=== PATIENT | female | born 1940 | race Caucasian/White ===

== ENCOUNTER 2017-12-03 14:30 | Outpatient (CLI) | payer MEDICARE, OTHER | END 2017-12-03 14:31 | disposition home or self-care (01) | LOC: BICMAMMO 14:30 | PROVIDERS: ATTEND Family Medicine | DX: Z12.31 Encounter for screening mammogram for malignant neoplasm of breast (principal) | CPT/HCPCS: 77063; 77067 ==

== ENCOUNTER 2017-12-31 18:44 | Inpatient (IN) | payer MEDICARE, OTHER ==
[~2017-12-31 18:44] MED LIST: ISOVUE-370 76%-LOCM 1 ML ONE
[2017-12-31] MEDS ORDERED: Morphine 4 MG/ML VIAL ONE (18:49)
[2017-12-31] MEDS ORDERED: Adacel (T-DAP) 0.5 ML VIAL ONE (18:56)
[2017-12-31 19:19] LABS: #Basophils 0.1 thou/uL (0.0-0.2); #Eosinphils 0.3 thou/uL (0.0-0.7); #Lymphocytes 4.1 thou/uL (1.20-3.40); #Monocytes 0.7 thou/uL (0.11-0.59); #Neutrophils 14.5 thou/uL (1.40-6.50); %Basophils 0.6 % (0.0-1.0); %Eosinophils 1.4 % (0.0-10.0); %Monocytes 3.3 % (0.0-10.0); %Neutrophils 73.7 % (42.0-75.0); Hemoglobin 13.8 g/dL (12.0-16.0); Mean Corpuscular HGB CONC 36.5 g/dL (32.0-36.0); Mean Corpuscular Hemoglobin 29.8 pg (27.0-31.0); Mean Corpuscular Volume 81.5 fL (78.0-98.0); Mean Platelet Volume 6.7 fL (7.4-10.4); Platelet Count 260 thou/uL (130-400); RBC Distribution Width 12.2 % (11.5-14.5); Red Blood Cell (RBC) Count 4.62 mill/uL (4.20-5.40); White Blood Cell (WBC) Count 19.7 thou/uL (4.8-10.8)
[2017-12-31 19:23] LABS: INR-International Normal Ratio 0.9; Prothrombin Time 12.1 SEC (12.0-14.7)
[2017-12-31 19:25] LABS: PTT 20.3 SEC (22.9-36.1)
[2017-12-31 19:32] LABS: ALT (SGPT) 129 U/L (8-55); AST (SGOT) 215 U/L (5-34); Albumin 4.1 g/dL (3.4-4.8); Alkaline Phosphatase 194 U/L (40-150); Anion Gap 15 mmol/L (10-20); BUN (Urea Nitrogen) 20 mg/dL (9.8-20.1); Bilirubin, Total 0.6 mg/dL (0.2-1.2); Calc. Creatinine Clearance 0 mL/min (70-130); Calcium 8.7 mg/dL (7.8-10.44); Carbon Dioxide 21 mmol/L (23-31); Chloride 105 mmol/L (98-107); Estimated GFR-MDRD 51; Globulin 2.9 g/dL (2.4-3.5); Glucose 189 mg/dL (83-110); Sodium 138 mmol/L (136-145)
[2017-12-31] MEDS ORDERED: Fentanyl 100 MCG/2 ML VIAL ONE (19:42)
[2017-12-31] MEDS ORDERED: Lidocaine 1% w/Epinephrine 1:100K 20 ML VIAL ONE (19:45)
[2017-12-31 20:31] LABS: Bilirubin Negative (Negative); Blood, Urine Large (Negative); Clarity CLOUDY (Clear); Glucose, Urine (Dipstick) Negative (Negative); Leukocyte Negative (Negative); Nitrite Negative (Negative); Protein, Urine (Dipstick) 100 mg/dL (Neg-Trace); Urobilinogen 0.2 mg/dL (0.2-1.0)
[2017-12-31 20:32] LABS: Bacteria/HPF None Seen HPF (None Seen); WBC/HPF 21-50 HPF (0-3)
[2017-12-31 20:36] LABS: Pathc Cast-AUWi Flag 4.94 (0-2.49); Yeast-AUWi Flag 41.1 (0-25.0)
[2017-12-31 20:38] LABS: Specific Gravity, Urine 1.057 (1.002-1.036)
[2017-12-31 20:48] LABS: Crystals/HPF None Seen HPF (Negative); Hyaline Casts/LPF 0-3 HYALINE CAST LPF (0-3 Hyaline); RBC/HPF 21-50 HPF (0-3); Yeast-All Forms None Seen HPF (None Seen)
[2017-12-31] MEDS ORDERED: Acetaminophen 1,000 MG in Premix Bag 1 BAG IVPB SCH (21:15)
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
[2017-12-31] MEDS ORDERED: Potassium Chloride 40 MEQ in Sodium Chloride 0.9% 500 ML IVPB SCH (21:30)
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
--- NOTE | 2017-12-31 21:50 | RAD ---
LEFT FOREARM TWO VIEWS: HISTORY: Injury. Trauma. COMPARISON: None. FINDINGS: The forearm is intact. Evidence of chronic medial epicondylitis. The soft tissues are unremarkable. IMPRESSION: Intact forearm. POS: [facility]
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
--- NOTE | 2017-12-31 22:02 | RAD ---
LEFT ELBOW TWO VIEWS: HISTORY: Pain. Trauma. COMPARISON: None. FINDINGS: Baseline images provided. No joint effusion. No fracture. No malalignment. IMPRESSION: No post traumatic change. POS: [facility]
--- NOTE | 2017-12-31 22:07 | RAD ---
ONE VIEW PELVIS: HISTORY: Trauma. Pain. COMPARISON: None. FINDINGS: The sacral ala are intact. The sacroiliac joints are patent and symmetric. The bony pelvis is intac t. Based on this single image, the contour of both femoral heads is maintained. No definite hip fra cture. IMPRESSION: No post traumatic change. POS: [facility]
--- NOTE | 2017-12-31 22:08 | RAD ---
CHEST ONE VIEW: HISTORY: Trauma. Pain. COMPARISON: None. FINDINGS: Right-sided subcutaneous emphysema is noted. Multiple right rib fractures are identified. Right-eduardo ed pneumothorax is noted. Normal cardiac silhouette. Pneumothorax in the left lung apex noted on CT is difficult to appreciate radiographically. IMPRESSION: Post traumatic changes, as above. POS: [facility]
[2017-12-31] MEDS ORDERED: Ondansetron HCl/PF 4 MG/2 ML Vial IVP PRN (22:18)
[2017-12-31] MEDS ORDERED: Ondansetron ODT 4 MG TAB PO PRN (22:18)
[2017-12-31] MEDS ORDERED: Rib Fracture Protocol IV SCH (22:18)
[2017-12-31] MEDS ORDERED: Dextrose 50% Abboject 50 ML SYRINGE SLOW IVP PRN (22:18)
[2017-12-31] MEDS ORDERED: Dextrose 5% in Water 1,000 ML IV PRN (22:18)
--- NOTE | 2017-12-31 22:18 | RAD ---
TWO VIEWS LEFT WRIST: HISTORY: Trauma. Pain. COMPARISON: None. FINDINGS: There is extensive dorsal soft tissue swelling. There appears to be chronic degenerative change invo lving the first carpometacarpal articulation with destructive change involving the trapezium and poss ibly the trapezoid bones. Acute fractures are not appreciated. There is soft tissue swelling at the level of the first metacarpal. IMPRESSION: Presumed chronic changes involving the first carpometacarpal articulation with bony remodeling. Ther e is soft tissue swelling involving the first metacarpal, as well as the dorsal aspect of the distal radius and ulna. Findings are presumed to be post traumatic. If there is concern for infection, add itional imaging can be performed. Of note, is there is concern for possible fractures involving the distal carpal row, CT is recommended for better evaluation and interrogation. A radiographic occult fracture could easily be missed in the setting of presumed chronic changes. POS: [facility]
[2017-12-31] MEDS: Sodium Chloride 0.9% 1,000 ML IV SCH (22:24)
[2017-12-31] MEDS ORDERED: Famotidine 20 MG TAB PO SCH (22:45)
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
[2017-12-31 22:51] VITALS: BMI 29.4
[2017-12-31] MEDS ORDERED: traMADol HCl 50 MG TAB PO PRN ×2 (23:01)
[2017-12-31] MEDS ORDERED: Morphine 4 MG/ML VIAL SLOW IVP PRN (23:09)
--- NOTE | 2017-12-31 23:29 | RAD ---
CHEST ONE VIEW: HISTORY: Trauma. Chest tube placement. COMPARISON: Radiograph from the same day. FINDINGS: Interval placement of thoracostomy tube with SidePort inside the hemithorax. The tip is at the level of the mid lung. No significant apical pneumothorax is appreciated. IMPRESSION: 1. Interval placement of thoracostomy tube with the tip projecting over the midline without signific ant apical pneumothorax remaining. 2. Increased subcutaneous emphysema. 3. Multiple displaced right-sided rib fractures. POS: [facility]
[2017-12-31] MEDS: Acetaminophen 650 MG Suppository PR SCH (23:57)
[2017-12-31] MEDS ORDERED: Ketorolac Tromethamine 30 MG/ML VIAL IVP SCH (23:59)
[2018-01-01 04:52] LABS: #Eosinphils 0.1 thou/uL (0.0-0.7); #Lymphocytes 0.7 thou/uL (1.20-3.40); #Monocytes 0.6 thou/uL (0.11-0.59); #Neutrophils 11.2 thou/uL (1.40-6.50); %Eosinophils 0.6 % (0.0-10.0); %Lymphocytes 5.8 % (21.0-51.0); %Monocytes 4.9 % (0.0-10.0); %Neutrophils 88.6 % (42.0-75.0); Hemoglobin 12.9 g/dL (12.0-16.0); Mean Corpuscular HGB CONC 35.9 g/dL (32.0-36.0); Mean Corpuscular Hemoglobin 30.1 pg (27.0-31.0); Mean Corpuscular Volume 83.9 fL (78.0-98.0); Mean Platelet Volume 6.9 fL (7.4-10.4); Platelet Count 203 thou/uL (130-400); RBC Distribution Width 12.5 % (11.5-14.5); Red Blood Cell (RBC) Count 4.27 mill/uL (4.20-5.40); White Blood Cell (WBC) Count 12.6 thou/uL (4.8-10.8)
[2018-01-01 05:15] LABS: ALT (SGPT) 128 U/L (8-55); AST (SGOT) 177 U/L (5-34); Alkaline Phosphatase 156 U/L (40-150); Bilirubin, Direct 0.2 mg/dL (0.1-0.3); Bilirubin, Total 0.6 mg/dL (0.2-1.2); Protein, Total 6.7 g/dL (6.0-8.3)
[2018-01-01 05:31] LABS: Anion Gap 18 mmol/L (10-20); BUN (Urea Nitrogen) 17 mg/dL (9.8-20.1); Calc. Creatinine Clearance 75 mL/min (70-130); Calcium 8.5 mg/dL (7.8-10.44); Carbon Dioxide 19 mmol/L (23-31); Chloride 107 mmol/L (98-107); Estimated GFR-MDRD 59; Glucose 271 mg/dL (83-110); Magnesium 1.8 mg/dL (1.6-2.6); Phosphorus 3.4 mg/dL (2.3-4.7); Potassium 3.8 mmol/L (3.5-5.1); Sodium 140 mmol/L (136-145)
[2018-01-01] MEDS: Acetaminophen 650 MG Suppository PR SCH (05:57)
[2018-01-01] MEDS ORDERED: Famotidine 20 MG TAB PO SCH (09:00)
[2018-01-01] MEDS ORDERED: Prevnar 13-Val Conj/PF 0.5 ML SYRINGE IM ONE (09:00)
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
--- NOTE | 2018-01-01 09:29 | CT ---
PRELIMINARY REPORT/[facility]/EMERGENTY AFTER-HOURS PROCEDURE CT Head Without Intravenous Contrast EXAM DATE/TIME: 01/01/2018 4:30 AM CLINICAL HISTORY: 77 years old, female; Condition or disease; Other: Ich; Patient HX: Follow up ich TECHNIQUE: Axial computed tomography images of the head/brain without intravenous contrast. COMPARISON: No relevant prior studies available. FINDINGS: Brain: Small amount of traumatic subarachnoid blood in the parafalcine location on the left. Tiny sub centimeter contusion not excluded. -hypodensity is seen in the periventricular cerebral white matter. This change is nonspecific but is most likely secondary to chronic ischemia within microvascular dis tributions. The lacy white matter distinction is maintained throughout the brain. Traumatic subarachn oid blood about the right sylvian fissure and the sulci about the right frontoparietal region. Trauma tic subarachnoid blood adjacent to the left temporal lobe. Possible small cerebral contusions in this region of approximately 1 cm. Followup. Ventricles: The ventricles are enlarged on the basis of mild diffuse cerebral volume loss. Bones/joints: Unremarkable. No acute fracture. Soft tissues: Soft tissue scalp contusion in the right frontal parietal region Sinuses: Unremarkable as visualized. No acute sinusitis. Mastoid air cells: Unremarkable as visualized. No mastoid effusion. IMPRESSION: Traumatic subarachnoid blood about the right sylvian fissure and the sulci about the right frontopari etal region. Traumatic subarachnoid blood adjacent to the left temporal lobe. Possible small cerebral contusions in this region of approximately 1 cm. Followup. Small amount of traumatic subarachnoid blood in the parafalcine location on the left. Tiny subcentime ter contusion not excluded. No prior exams are available for comparison. Thank you for allowing us to participate in the care of your patient. Dictated and Authenticated by: Shailesh Vincent MD 01/01/2018 6:16 AM Central Time ([place] & [place]) CT HEAD NONCONTRAST: Date: 01-01-18 Performed on emergency basis at 0431 hours. History: Intracranial hemorrhage. Follow up. Comparison: 12-31-17 FINDINGS: Agree with the preliminary report by Dr. Howell from [facility]. Prior exams are now available for direct comparison. The subarachnoid hemorrhage along the right Sylv paul fissure and the posterior aspect of the left temporal sulci has increased slightly. Other scatter ed areas of subarachnoid hemorrhage are not significantly changed. Non diffuse cerebral edema is not significantly different than on a prior study. No focal areas of acute mass effect are evident. Code QA POS: [facility]
[2018-01-01] MEDS ORDERED: Dextrose 5% in Water 1,000 ML IV PRN (09:33)
[2018-01-01] MEDS ORDERED: Dextrose 50% Abboject 50 ML SYRINGE IVP PRN (09:33)
--- NOTE | 2018-01-01 10:14 | RAD ---
PORTABLE AP CHEST X-RAY: 01/01/2018 HISTORY: Evaluate thoracostomy tube placement. Follow-up evaluation. COMPARISON: 12/31/2017 FINDINGS: Right-sided thoracostomy tube remains in place and unchanged in position. There is suggestion of a v joseph tiny right apical pneumothorax. Multiple displaced right sided rib fractures are present. Subcu taneous emphysema is seen at the lateral right chest. There is volume loss present at the left lung base, and a tiny left pleural effusion is not entirely excluded. No pneumothorax is seen on the left . The cardiac silhouette and pulmonary vasculature are within normal limits. No other interval holguin ge. IMPRESSION: 1. Multiple displaced right-sided rib fractures with right-sided thoracostomy tube in place. There is question of a tiny right apical pneumothorax. 2. Subcutaneous emphysema along the right lateral chest. 3. Atelectasis, left lung base. POS: [facility]
[2018-01-01] MEDS ORDERED: Gabapentin 100 MG CAP PO SCH (10:15)
[2018-01-01] MEDS: traMADol HCl 50 MG TAB PO SCH ×3 (11:04→23:59)
[2018-01-01] MEDS: Insulin Regular 300 UNITS/3 ML VIAL SC PRN ×3 (12:29→21:29)
[2018-01-01] MEDS: Sodium Chloride 0.9% 1,000 ML IV SCH (13:39)
[2018-01-01] MEDS: Gabapentin 100 MG CAP PO SCH ×2 (14:26→20:27)
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
[2018-01-01] MEDS: Famotidine 20 MG TAB PO SCH (20:26)
[2018-01-01] MEDS: Donepezil HCl 5 MG TAB PO SCH (20:27)
[2018-01-02] MEDS: Sodium Chloride 0.9% 1,000 ML IV SCH ×2 (04:08→22:02)
[2018-01-02] MEDS: traMADol HCl 50 MG TAB PO SCH ×3 (05:57→19:36)
[2018-01-02] MEDS: Insulin Regular 300 UNITS/3 ML VIAL SC PRN ×3 (06:18→19:41)
--- NOTE | 2018-01-02 09:28 | RAD ---
PORTABLE CHEST: HISTORY: Respiratory distress. COMPARISON: Prior day's study. Heart size is within normal limits. There are atherosclerotic changes of the aorta. Right chest tub e remains in position. Displaced right-sided rib fractures again noted. There is an apical pneumoth orax present. This appears possibly slightly larger as compared to the prior examination. Subcutane ous emphysema is again noted. IMPRESSION: Suggestion of some perhaps minimal interval increase in size of the right-sided pneumothorax. Multip le displaced right rib fractures again noted. Right chest tube remains in place. POS: [facility]
[2018-01-02] MEDS: Famotidine 20 MG TAB PO SCH ×2 (10:02→20:13)
[2018-01-02] MEDS: Gabapentin 100 MG CAP PO SCH ×3 (10:03→20:13)
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
[2018-01-02] MEDS ORDERED: HYDROcodone/Acetaminophen 5/325 mg Tablet PO PRN (16:38)
[2018-01-02] MEDS: Cyclobenzaprine 10 MG TAB PO PRN (17:13)
--- NOTE | 2018-01-02 20:10 | RAD ---
ABDOMEN ONE VIEW: 01/02/18 HISTORY: Evaluate for ileus. COMPARISON: None. FINDINGS: There are mildly prominent air filled loops of small bowel and colon. There is air down to the level of the rectum. Possibility of ileus is raised. Continued surveillance is recommended. IMPRESSION: Findings as above. POS: [facility]
[2018-01-02] MEDS: Donepezil HCl 5 MG TAB PO SCH ×2 (20:13→22:02)
[2018-01-03] MEDS: Cyclobenzaprine 10 MG TAB PO PRN (01:14)
[2018-01-03] MEDS: traMADol HCl 50 MG TAB PO SCH ×5 (01:14→22:42)
[2018-01-03] MEDS: hydrALAZINE 20 MG/ML VIAL SLOW IVP PRN (05:12)
[2018-01-03 05:38] LABS: #Eosinphils 0.1 thou/uL (0.0-0.7); #Lymphocytes 0.9 thou/uL (1.20-3.40); #Monocytes 0.3 thou/uL (0.11-0.59); %Basophils 0.5 % (0.0-1.0); %Eosinophils 0.7 % (0.0-10.0); %Lymphocytes 8.7 % (21.0-51.0); %Monocytes 3.2 % (0.0-10.0); Hemoglobin 10.3 g/dL (12.0-16.0); Mean Corpuscular HGB CONC 34.4 g/dL (32.0-36.0); Mean Corpuscular Hemoglobin 29.2 pg (27.0-31.0); Mean Corpuscular Volume 84.7 fL (78.0-98.0); Mean Platelet Volume 6.8 fL (7.4-10.4); Platelet Count 171 thou/uL (130-400); RBC Distribution Width 12.7 % (11.5-14.5); Red Blood Cell (RBC) Count 3.55 mill/uL (4.20-5.40); White Blood Cell (WBC) Count 10.3 thou/uL (4.8-10.8)
[2018-01-03 06:06] LABS: Anion Gap 14 mmol/L (10-20); BUN (Urea Nitrogen) 10 mg/dL (9.8-20.1); Calc. Creatinine Clearance 104 mL/min (70-130); Calcium 8.5 mg/dL (7.8-10.44); Carbon Dioxide 25 mmol/L (23-31); Chloride 104 mmol/L (98-107); Estimated GFR-MDRD 86; Glucose 198 mg/dL (83-110); Magnesium 1.7 mg/dL (1.6-2.6); Potassium 3.5 mmol/L (3.5-5.1); Sodium 139 mmol/L (136-145)
[2018-01-03] MEDS: Insulin Regular 300 UNITS/3 ML VIAL SC PRN ×2 (06:16→12:39)
[2018-01-03 06:17] LABS: Phosphorus 1.3 mg/dL (2.3-4.7)
[2018-01-03] MEDS ORDERED: Potassium Phosphate 30 MMOL, Admixture Fee 1 EACH in Sodium Chloride 0.9% 500 ML IVPB SCH (06:45)
--- NOTE | 2018-01-03 08:30 | RAD ---
PORTABLE CHEST: Date: 01/03/18 HISTORY: Respiratory distress. COMPARISON: Prior day's study. FINDINGS: Heart size within normal limits. There are atherosclerotic changes of the aorta. Right chest tubes re ginger in place. The size of the right pneumothorax appears slightly decreased as compared to the prio r exam. Multiple right rib fractures again noted. IMPRESSION: Slight interval decrease in size of the right-sided pneumothorax. POS: [facility]
[2018-01-03] MEDS: Hydrochlorothiazide 25 MG TAB PO SCH (08:37)
[2018-01-03] MEDS: Losartan/Hydrochlorothiazide 100 mg/25 mg Tablet PO SCH (08:37)
[2018-01-03] MEDS: Simvastatin 40 MG TAB PO SCH (08:38)
[2018-01-03] MEDS: Gabapentin 100 MG CAP PO SCH ×3 (08:38→20:41)
[2018-01-03] MEDS: Famotidine 20 MG TAB PO SCH ×2 (08:38→20:41)
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
[2018-01-03] MEDS: Sodium Chloride 0.9% 1,000 ML IV SCH (16:48)
[2018-01-03] MEDS: Ibuprofen 800 MG TAB PO SCH (18:13)
[2018-01-03] MEDS: Donepezil HCl 5 MG TAB PO SCH ×2 (20:40→20:50)
[2018-01-03] MEDS: Senokot S 8.6-50 MG TAB PO SCH (20:40)
[2018-01-03] MEDS: Aspirin 81 mg Enteric Coated Tablet PO SCH (20:40)
[2018-01-03] MEDS: Bacitracin Zinc Ointment 30 gm TUBE TOP SCH (22:34)
[2018-01-04] MEDS: Ibuprofen 800 MG TAB PO SCH ×3 (00:04→16:33)
[2018-01-04] MEDS: traMADol HCl 50 MG TAB PO SCH ×5 (00:17→23:19)
[2018-01-04 05:56] LABS: #Eosinphils 0.2 thou/uL (0.0-0.7); #Lymphocytes 1.5 thou/uL (1.20-3.40); #Monocytes 0.4 thou/uL (0.11-0.59); #Neutrophils 8.4 thou/uL (1.40-6.50); %Basophils 0.4 % (0.0-1.0); %Lymphocytes 13.8 % (21.0-51.0); %Neutrophils 79.7 % (42.0-75.0); Hemoglobin 10.8 g/dL (12.0-16.0); Mean Corpuscular HGB CONC 35.3 g/dL (32.0-36.0); Mean Corpuscular Hemoglobin 29.9 pg (27.0-31.0); Mean Corpuscular Volume 84.9 fL (78.0-98.0); Mean Platelet Volume 6.3 fL (7.4-10.4); Platelet Count 217 thou/uL (130-400); RBC Distribution Width 12.7 % (11.5-14.5); White Blood Cell (WBC) Count 10.5 thou/uL (4.8-10.8)
[2018-01-04 06:16] LABS: Anion Gap 10 mmol/L (10-20); BUN (Urea Nitrogen) 11 mg/dL (9.8-20.1); Calc. Creatinine Clearance 105 mL/min (70-130); Calcium 8.6 mg/dL (7.8-10.44); Carbon Dioxide 31 mmol/L (23-31); Chloride 101 mmol/L (98-107); Estimated GFR-MDRD 87; Glucose 132 mg/dL (83-110); Phosphorus 2.2 mg/dL (2.3-4.7); Sodium 139 mmol/L (136-145)
[2018-01-04] MEDS ORDERED: Potassium Phosphate 30 MMOL in Sodium Chloride 0.9% 250 ML 250 ML IVPB SCH (08:45)
[2018-01-04 08:58] LABS: Hemoglobin A1c 7.5 % (4.0-6.0)
[2018-01-04] MEDS: Losartan/Hydrochlorothiazide 100 mg/25 mg Tablet PO SCH (09:13)
[2018-01-04] MEDS: Aspirin 81 mg Enteric Coated Tablet PO SCH ×2 (09:14→21:23)
[2018-01-04] MEDS: Hydrochlorothiazide 25 MG TAB PO SCH (09:14)
[2018-01-04] MEDS: Senokot S 8.6-50 MG TAB PO SCH ×2 (09:14→21:23)
[2018-01-04] MEDS: Gabapentin 100 MG CAP PO SCH ×3 (09:15→21:24)
[2018-01-04] MEDS: Famotidine 20 MG TAB PO SCH ×2 (09:15→21:23)
[2018-01-04] MEDS: Simvastatin 40 MG TAB PO SCH (09:16)
[2018-01-04] MEDS: Polyethylene Glycol 3350 17 GM Packet PO SCH (09:16)
[2018-01-04] MEDS: Sodium Chloride 0.9% 1,000 ML IV SCH (09:16)
[2018-01-04] MEDS: Bacitracin Zinc Ointment 30 gm TUBE TOP SCH ×2 (09:55→21:23)
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
--- NOTE | 2018-01-04 15:40 | RAD ---
CHEST 1 VIEW: Date: 01/04/18 HISTORY: Pneumothorax. COMPARISON: Chest radiograph from same day. FINDINGS: Right side thoracostomy tube is in place, the side port likely within the thoracic cavity. Small righ t pneumothorax. Moderate right effusion and hemothorax. Multiple right-sided displaced rib fractures. IMPRESSION: Small right apical pneumothorax. POS: [facility]
[2018-01-04] MEDS: hydrALAZINE 20 MG/ML VIAL SLOW IVP PRN (16:33)
[2018-01-04] MEDS: Donepezil HCl 5 MG TAB PO SCH (21:23)
[2018-01-05] MEDS: Ibuprofen 800 MG TAB PO SCH (00:11)
[2018-01-05] MEDS: traMADol HCl 50 MG TAB PO SCH ×4 (00:12→20:24)
[2018-01-05] MEDS: traMADol HCl 50 MG TAB PO PRN ×2 (02:06→15:33)
[2018-01-05] MEDS: Insulin Regular 300 UNITS/3 ML VIAL SC PRN (06:44)
[2018-01-05] MEDS: Ibuprofen 600 MG TAB PO SCH ×3 (08:48→23:20)
[2018-01-05 09:05] LABS: #Eosinphils 0.2 thou/uL (0.0-0.7); #Lymphocytes 1.3 thou/uL (1.20-3.40); #Monocytes 0.5 thou/uL (0.11-0.59); #Neutrophils 8.3 thou/uL (1.40-6.50); %Basophils 0.4 % (0.0-1.0); %Eosinophils 1.6 % (0.0-10.0); %Lymphocytes 12.4 % (21.0-51.0); %Neutrophils 80.6 % (42.0-75.0); Hemoglobin 11.2 g/dL (12.0-16.0); Mean Corpuscular HGB CONC 34.8 g/dL (32.0-36.0); Mean Corpuscular Hemoglobin 29.5 pg (27.0-31.0); Mean Corpuscular Volume 84.8 fL (78.0-98.0); Mean Platelet Volume 5.9 fL (7.4-10.4); Platelet Count 247 thou/uL (130-400); RBC Distribution Width 12.8 % (11.5-14.5); Red Blood Cell (RBC) Count 3.79 mill/uL (4.20-5.40); White Blood Cell (WBC) Count 10.3 thou/uL (4.8-10.8)
[2018-01-05 09:18] LABS: Anion Gap 11 mmol/L (10-20); BUN (Urea Nitrogen) 10 mg/dL (9.8-20.1); Calc. Creatinine Clearance 108 mL/min (70-130); Calcium 8.9 mg/dL (7.8-10.44); Carbon Dioxide 31 mmol/L (23-31); Chloride 97 mmol/L (98-107); Estimated GFR-MDRD 90; Glucose 134 mg/dL (83-110); Magnesium 1.9 mg/dL (1.6-2.6); Phosphorus 2.9 mg/dL (2.3-4.7); Sodium 136 mmol/L (136-145)
[2018-01-05] MEDS: Gabapentin 100 MG CAP PO SCH ×3 (10:03→20:24)
[2018-01-05] MEDS: Senokot S 8.6-50 MG TAB PO SCH ×2 (10:03→20:24)
[2018-01-05] MEDS: Polyethylene Glycol 3350 17 GM Packet PO SCH (10:03)
[2018-01-05] MEDS: Losartan/Hydrochlorothiazide 100 mg/25 mg Tablet PO SCH (10:04)
[2018-01-05] MEDS: Bacitracin Zinc Ointment 30 gm TUBE TOP SCH ×2 (10:05→20:25)
[2018-01-05] MEDS: Famotidine 20 MG TAB PO SCH ×2 (10:05→20:24)
[2018-01-05] MEDS: Simvastatin 40 MG TAB PO SCH (10:05)
[2018-01-05] MEDS: Aspirin 81 mg Enteric Coated Tablet PO SCH ×2 (10:05→20:24)
--- NOTE | 2018-01-05 11:14 | EKG ---
Test Reason : Blood Pressure : / mmHG Vent. Rate : 071 BPM Atrial Rate : 071 BPM P-R Int : 194 ms QRS Dur : 100 ms QT Int : 454 ms P-R-T Axes : 069 054 044 degrees QTc Int : 493 ms Normal sinus rhythm Prolonged QT Abnormal ECG No ST elevation/[place] Confirmed by ALEX HICKS M.D. ([id number]), publication editor SAGE SUAZO ([id number]) on 01/05/2018 11:14:05 AM Referred By: Confirmed By:ALEX HICKS M.D.
--- NOTE | 2018-01-05 13:00 | RAD ---
UPRIGHT PORTABLE CHEST ONE VIEW: HISTORY: A 77-year-old female with a history of a chest tube. COMPARISON: 01/04/2018 FINDINGS: A right chest tube is again noted in place with numerous displaced rib fractures with improving subcu taneous emphysema. Minimal persistent parenchymal changes in the lung bases, right greater than left . IMPRESSION: Improving right-sided subcutaneous emphysema. The previously noted small, loculated pneumothorax in the right base does not appear to be evident on today's study. Stable appearing left chest. Atheros clerosis of the aorta. Continue short term followup. POS: [facility]
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
[2018-01-05] MEDS: Acetaminophen 1,000 MG in Premix Bag 1 BAG IVPB SCH ×2 (17:59→23:20)
[2018-01-05] MEDS: Donepezil HCl 5 MG TAB PO SCH (20:24)
[2018-01-06] MEDS: traMADol HCl 50 MG TAB PO SCH ×3 (02:57→15:46)
[2018-01-06] MEDS: Acetaminophen 1,000 MG in Premix Bag 1 BAG IVPB SCH ×2 (05:23→13:02)
[2018-01-06 05:25] LABS: Anion Gap 12 mmol/L (10-20); BUN (Urea Nitrogen) 10 mg/dL (9.8-20.1); Calc. Creatinine Clearance 104 mL/min (70-130); Calcium 8.9 mg/dL (7.8-10.44); Carbon Dioxide 32 mmol/L (23-31); Chloride 94 mmol/L (98-107); Estimated GFR-MDRD 86; Glucose 147 mg/dL (83-110); Magnesium 1.9 mg/dL (1.6-2.6); Phosphorus 3.1 mg/dL (2.3-4.7); Potassium 3.6 mmol/L (3.5-5.1); Sodium 134 mmol/L (136-145)
[2018-01-06 06:26] LABS: Band 7 % (5-11); Eosinophils 1 % (0-10); Lymphocytes 10 % (21-51); MDiff Complete? YES; Mean Corpuscular HGB CONC 34.8 g/dL (32.0-36.0); Mean Corpuscular Hemoglobin 29.7 pg (27.0-31.0); Mean Corpuscular Volume 85.2 fL (78.0-98.0); Monocytes 8 % (0-10); Neutrophil 74 % (42-75); PLT Morphology Comment Appears Adequate; Platelet Count 267 thou/uL (130-400); RBC Distribution Width 12.8 % (11.5-14.5); Red Blood Cell (RBC) Count 4.04 mill/uL (4.20-5.40); White Blood Cell (WBC) Count 13.8 thou/uL (4.8-10.8)
--- NOTE | 2018-01-06 07:28 | RAD ---
PORTABLE CHEST: HISTORY: Patient pulled out chest tube. COMPARISON: Prior exam done today. FINDINGS: The right chest tube is no longer present. I do not see any change in the appearance of the right ch est. I do not see any signs of any definite pneumothorax. Parenchymal lung changes are stable. IMPRESSION: Interval removal of the right chest tube. Right lung remains expanded. POS: [facility]
--- NOTE | 2018-01-06 08:01 | RAD ---
CHEST 1 VIEW: HISTORY: A 77-year-old female with a history of chest tube. Numerous markedly displaced right rib fractures are again noted with prominent pleural and minimal pa renchymal changes in the right chest. The previously noted chest tube has been removed. No signific ant residual pneumothorax. The left chest is stable. IMPRESSION: Stable right chest. No significant new process. POS: [facility]
[2018-01-06] MEDS: Ibuprofen 600 MG TAB PO SCH ×2 (08:28→15:45)
[2018-01-06] MEDS ORDERED: Bisacodyl 10 MG SUPP PR SCH (09:00)
[2018-01-06] MEDS: Simvastatin 40 MG TAB PO SCH (09:54)
[2018-01-06] MEDS: Losartan/Hydrochlorothiazide 100 mg/25 mg Tablet PO SCH (09:54)
[2018-01-06] MEDS: Gabapentin 100 MG CAP PO SCH ×2 (09:54→15:45)
[2018-01-06] MEDS: Aspirin 81 mg Enteric Coated Tablet PO SCH (09:56)
[2018-01-06] MEDS: Famotidine 20 MG TAB PO SCH (09:56)
[2018-01-06] MEDS: Bacitracin Zinc Ointment 30 gm TUBE TOP SCH (09:57)
[2018-01-06] MEDS: Polyethylene Glycol 3350 17 GM Packet PO SCH (09:58)
[2018-01-06] MEDS: Senokot S 8.6-50 MG TAB PO SCH (09:58)
[2018-01-06] MEDS: Insulin Regular 300 UNITS/3 ML VIAL SC PRN (11:09)
[2018-01-06] MEDS: Acetaminophen 500 MG TAB PO SCH ×2 (12:51→17:42)
[2018-01-06 17:08] VITALS: BP 133/73; TEMP 97.7
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
== END 2018-01-06 18:16 | DRG 964 ==
LOC: ERS 18:44 → SURG A 21:47 → CCU 21:51 → SURG A 01-01 15:21
PROVIDERS: ADMIT Specialist; ATTEND Specialist
PROC: 0W9930Z Drainage of Right Pleural Cavity with Drainage Device, Percutaneous Approach (ICD-10-PCS; principal; 2017-12-31)
DX: S06.6X0A Traumatic subarachnoid hemorrhage without loss of consciousness, initial encounter (principal); S12.112A Nondisplaced Type II dens fracture, initial encounter for closed fracture; S27.0XXA Traumatic pneumothorax, initial encounter; S12.600A Unspecified displaced fracture of seventh cervical vertebra, initial encounter for closed fracture; S12.100A Unspecified displaced fracture of second cervical vertebra, initial encounter for closed fracture; S22.41XA Multiple fractures of ribs, right side, initial encounter for closed fracture; S22.32XA Fracture of one rib, left side, initial encounter for closed fracture; S12.400A Unspecified displaced fracture of fifth cervical vertebra, initial encounter for closed fracture; K56.7 Ileus, unspecified; S06.5X0A Traumatic subdural hemorrhage without loss of consciousness, initial encounter; Y92.488 Other paved roadways as the place of occurrence of the external cause; V45.6XXA Car passenger injured in collision with railway train or railway vehicle in traffic accident, initial encounter; Z79.82 Long term (current) use of aspirin; E11.9 Type 2 diabetes mellitus without complications; E78.5 Hyperlipidemia, unspecified; I10 Essential (primary) hypertension; S06.0X0A Concussion without loss of consciousness, initial encounter; S02.2XXA Fracture of nasal bones, initial encounter for closed fracture; G89.11 Acute pain due to trauma; E87.6 Hypokalemia; E83.39 Other disorders of phosphorus metabolism; E83.42 Hypomagnesemia; S00.83XA Contusion of other part of head, initial encounter; Z83.3 Family history of diabetes mellitus
CPT/HCPCS: 32551; 36415; 36416; 51702; 70450; 70486; 71045; 71260; 72125; 72170; 74018; 74177; 80048; 80053; 80076; 81003; 81015; 83036; 83735; 84100; 85025; 85610; 85730; 86850; 86900; 86901; 90471; 90670; 90715; 93005; 94640; 96374; 96375; 96376; 99292; G0009; G0390; G8978-GP-CN; G8979-GP-CK; G8987-GO-CM; G8988-GO-CK; G8996-GN-CK; G8997-GN-CI; J0131; J0360; J1815; J2001; J2270; J3010; J3480; J7050; J7620; Q0162

== ENCOUNTER 2018-01-31 11:18 | Outpatient (CLI) | payer MEDICARE, OTHER ==
--- NOTE | 2018-01-31 13:32 | RAD ---
CHEST PA AND LATERAL: History: 77-year-old female with history of follow up right sided pneumothorax and extensive rib fractures. Comparison: Chest one view, 01-21-18 FINDINGS: Extensive displaced right rib fractures with some right hemidiaphragm elevation and minimal pleural a nd parenchymal opacity changes in the right chest having more the appearance of chronic pleural thick ening. No significant acute process in the left chest. Heart size is normal. IMPRESSION: Stable chest with extensive right rib displaced fractures and right hemidiaphragm elevation and stabl e pleural and parenchymal opacity changes in the right chest. POS: [facility]
== END 2018-01-31 11:19 | disposition home or self-care (01) ==
LOC: RAD 11:18
PROVIDERS: ATTEND Surgery
DX: S22.42XD Multiple fractures of ribs, left side, subsequent encounter for fracture with routine healing (principal); J93.9 Pneumothorax, unspecified; S22.31XA Fracture of one rib, right side, initial encounter for closed fracture; J98.6 Disorders of diaphragm
CPT/HCPCS: 71046

== ENCOUNTER 2018-02-05 14:16 | Outpatient (CLI) | payer MEDICARE, OTHER ==
--- NOTE | 2018-02-05 15:50 | CT ---
NONCONTRAST CT HEAD: Date: 02-05-18 History: Nontraumatic intracranial hemorrhage. Follow up evaluation. Comparison: 01-01-18 FINDINGS: There has been expected evolutionary changes of blood products and resolution of previously seen suba rachnoid hemorrhage in the cerebral hemispheres bilaterally, including the larger area of hemorrhage within the left temnporal lobe. NO intraparenchymal or extraaxial hemorrhage is seen on today's exam. There is no evidence of an acute infarction, mass effect, or midline shift. Ventricular system is nor mal in size, shape, and position. No calvarial fracture is seen. Visualized paranasal sinuses and mas toid air cells are clear. IMPRESSION: 1. Expected evolutionary changes in blood products and resolution of bilateral subarachnoid hemorrhag e and areas of small contusion previously seen on the prior exam. No intraparenchymal or extraaxial h emorrhage is seen on today's exam. 2. Resolution of scalp hematomas, right frontoparietal region. 3. Stable nasal bone fracture without overlying soft tissue swelling. POS: [facility]
== END 2018-02-05 14:17 | disposition home or self-care (01) ==
LOC: TBSIIMAG 14:16
PROVIDERS: ATTEND Neurological Surgery
DX: I60.9 Nontraumatic subarachnoid hemorrhage, unspecified (principal); S00.03XD Contusion of scalp, subsequent encounter; M79.89 Other specified soft tissue disorders
CPT/HCPCS: 70450

== ENCOUNTER 2018-02-05 17:34 | Outpatient (CLI) | payer MEDICARE, OTHER ==
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
== END 2018-02-05 17:35 | disposition home or self-care (01) ==
LOC: RAD 17:34
PROVIDERS: ATTEND Neurological Surgery
DX: S12.600D Unspecified displaced fracture of seventh cervical vertebra, subsequent encounter for fracture with routine healing (principal); S12.110D Anterior displaced Type II dens fracture, subsequent encounter for fracture with routine healing
CPT/HCPCS: 72040

== ENCOUNTER 2018-03-05 13:15 | Outpatient (CLI) | payer MEDICARE, OTHER ==
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
== END 2018-03-05 13:16 | disposition home or self-care (01) ==
LOC: TBSIIMAG 13:15
PROVIDERS: ATTEND Neurological Surgery
DX: S12.9XXD Fracture of neck, unspecified, subsequent encounter (principal)
CPT/HCPCS: 72040

== ENCOUNTER 2018-04-11 13:33 | Outpatient (CLI) | payer MEDICARE, OTHER ==
--- NOTE | 2018-04-11 14:48 | RAD ---
THREE VIEWS CERVICAL SPINE: Comparison: 03-05-18 History: Fracture of the second cervical vertebra. FINDINGS: Three views of the cervical spine show a fracture of the odontoid process. This is minimally displace d and unchanged. Increased callus formation is seen surrounding this suggesting healing. There are mo derate degenerative changes of the mid cervical spine. Vertebral bodies demonstrate normal alignment without subluxation. No prevertebral soft tissue swelling is seen. IMPRESSION: Healing odontoid process fracture. POS: [facility]
== END 2018-04-11 13:34 | disposition home or self-care (01) ==
LOC: RAD 13:33 → TBSIIMAG 13:34
PROVIDERS: ATTEND Neurological Surgery
DX: S12.101A Unspecified nondisplaced fracture of second cervical vertebra, initial encounter for closed fracture (principal)
CPT/HCPCS: 72040

== ENCOUNTER 2018-06-12 15:02 | Outpatient (CLI) | payer MEDICARE, OTHER ==
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
== END 2018-06-12 15:03 | disposition home or self-care (01) ==
LOC: TBSIIMAG 15:02
PROVIDERS: ATTEND Neurological Surgery
DX: S12.100D Unspecified displaced fracture of second cervical vertebra, subsequent encounter for fracture with routine healing (principal); M43.12 Spondylolisthesis, cervical region
CPT/HCPCS: 72050